=== PATIENT | male | born 1980 | race Caucasian/White ===

== ENCOUNTER 2017-06-19 14:40 | Emergency (ER) | payer OTHER ==
[~2017-06-19] VITALS: Ht 160 cm; Wt 114.9 kg
[~2017-06-19 14:40] MED LIST: BIAXIN250 MG PO; PERCOCET 5/31 TABLET PO; [UNRECOGNIZED DRUG - OTHER] PO
[2017-06-19 15:50] LABS: APPEARANCE CLEAR ((CLEAR)); BILIRUBIN NEGATIVE; BLOOD NEGATIVE; COLOR YELLOW ((YELLOW)); GLUCOSE (STRIP) NEGATIVE; KETONES NEGATIVE; LEUKOCYTES NEGATIVE; NITRITE NEGATIVE; PROTEIN (STRIP) NEGATIVE; SPECIFIC GRAVITY 1.019 (1.000-1.030); UROBILINOGEN 0.2 MG/DL (0.2-1.0)
[2017-06-19] MEDS ORDERED: VALIUM5 MG PO (16:51)
[2017-06-19] MEDS ORDERED: ULTRAM50 MG PO (16:51)
[2017-06-19 19:06] VITALS: BP 160/94
== END 2017-06-19 19:07 | disposition home or self-care (01) ==
LOC: EME 14:40
PROVIDERS: Physician Assistant
DX: M54.5 Low back pain (principal); M79.604 Pain in right leg; K40.90 Unilateral inguinal hernia, without obstruction or gangrene, not specified as recurrent; G47.30 Sleep apnea, unspecified; F17.200 Nicotine dependence, unspecified, uncomplicated
CPT/HCPCS: 72100; 74018; 76870; 81003; 99281; 99284; J1885